=== PATIENT | male | born 1960 | race Caucasian/White ===

== ENCOUNTER 2017-12-20 14:53 | Emergency (ER) | payer OTHER ==
[~2017-12-20 14:53] MED LIST: Iopamidol 370 76% 100 ML VIAL ONE
--- NOTE | 2017-12-20 15:47 | RAD ---
CHEST PA AND LATERAL TWO VIEWS 12/20/17 HISTORY: 56-year-old male with history of left sided pain on the lowest part of the rib cage which began after the spinal nerve stimulator implant surgery. Dorsal column stimulator leads overlie the lower thoracic spine. Surgical changes are noted in the l ower cervical spine. Heart size is normal. There are old granuloma calcifications. No confluent pneum onia, overt edema, or pleural effusion. IMPRESSION: No acute intrathoracic disease. Old granulomatous disease. POS: [facility]
[2017-12-20 15:50] LABS: #Basophils 0.1 thou/uL (0.0-0.2); #Eosinphils 0.2 thou/uL (0.0-0.7); #Lymphocytes 1.5 thou/uL (1.20-3.40); #Monocytes 0.7 thou/uL (0.11-0.59); #Neutrophils 8.2 thou/uL (1.40-6.50); %Basophils 0.8 % (0.0-1.0); %Eosinophils 1.4 % (0.0-10.0); %Lymphocytes 13.8 % (21.0-51.0); %Neutrophils 77.1 % (42.0-75.0); Hemoglobin 13.5 g/dL (14.0-18.0); Mean Corpuscular HGB CONC 32.4 g/dL (32.0-36.0); Mean Corpuscular Hemoglobin 27.9 pg (27.0-31.0); Mean Corpuscular Volume 86.4 fL (78.0-98.0); Mean Platelet Volume 8.9 fL (7.4-10.4); Platelet Count 312 thou/uL (130-400); RBC Distribution Width 11.4 % (11.5-14.5); Red Blood Cell (RBC) Count 4.85 mill/uL (4.70-6.10); White Blood Cell (WBC) Count 10.7 thou/uL (4.8-10.8)
[2017-12-20 16:02] LABS: ALT (SGPT) 23 U/L (8-55); AST (SGOT) 22 U/L (5-34); Albumin 4.7 g/dL (3.5-5.0); Alkaline Phosphatase 79 U/L (40-150); Anion Gap 13 mmol/L (10-20); BUN (Urea Nitrogen) 14 mg/dL (8.4-25.7); Bilirubin, Total 0.4 mg/dL (0.2-1.2); Calc. Creatinine Clearance 0 mL/min (70-130); Calcium 10.5 mg/dL (7.8-10.44); Carbon Dioxide 26 mmol/L (22-29); Chloride 106 mmol/L (98-107); Estimated GFR-MDRD 90; Globulin 3.1 g/dL (2.4-3.5); Glucose 96 mg/dL (70-105); Lipase 34 U/L (8-78); Potassium 3.5 mmol/L (3.5-5.1); Protein, Total 7.8 g/dL (6.0-8.3); Sodium 141 mmol/L (136-145)
--- NOTE | 2017-12-20 17:07 | CT ---
CT ABDOMEN AND PELVIS WITH IV CONTRAST: Date: 12/20/17 HISTORY: Left abdomen pain. FINDINGS: Tiny nonspecific nodule is present at the right anterior lung base. Calcified granulomata are apparen t within the spleen and retroperitoneum. Small cysts of the right kidney. No evidence of urinary trac t obstruction or calcification. No lesions involve the visualized ribs. Dorsal column stimulator lead s and pack are in place without evidence of complication. No evidence of bowel obstruction or inflamm ation. Urinary bladder is incompletely distended. IMPRESSION: No significant abnormalities are demonstrated. POS: [facility]
== END 2017-12-20 17:01 | disposition home or self-care (01) ==
LOC: NAV ERS 14:53
DX: R10.12 Left upper quadrant pain (principal); Z87.891 Personal history of nicotine dependence; Z79.899 Other long term (current) drug therapy
CPT/HCPCS: 71046; 74177; 80053; 83690; 85025